=== PATIENT | female | born 1990 | race African-American/Black ===

== ENCOUNTER 2018-07-17 09:34 | Emergency (ER) | payer MEDICAID, OTHER ==
[~2018-07-17] VITALS: Ht 167.6 cm; Wt 90.7 kg
[2018-07-17 11:25] VITALS: BP 114/75
== END 2018-07-17 12:13 | disposition home or self-care (01) ==
LOC: ER 09:40
DX: J02.9 Acute pharyngitis, unspecified (principal); R05 Cough; R50.9 Fever, unspecified

== ENCOUNTER 2018-09-06 09:14 | Emergency (ER) | payer MEDICAID ==
[~2018-09-06] VITALS: Ht 167.6 cm; Wt 92.5 kg
[2018-09-06 10:22] LABS: Urine Pregnacy Test Negative (Negative)
[2018-09-06 10:29] LABS: Urine Bacteria FEW /hpf (None Seen); Urine Blood Negative /uL (Negative); Urine Mucus FEW (None Seen); Urine Specific Gravity 1.027 (1.001-1.035); Urine WBC 3 /hpf (0 - 5)
[2018-09-06 10:40] LABS: Basophils # (auto) 0.1 uL; Eosinophils # (auto) 0.1 uL; Eosinophils % (auto) 1.1 % (0.0-7.0); Hematocrit 40.6 % (36.0-46.0); Hemoglobin 13.7 g/dL (12.2-16.2); Lymphocytes # (auto) 1.7 uL; Mean Corpuscular Hemoglobin 28.8 pg (28.0-32.0); Mean Corpuscular Hgb Conc. 33.8 g/dL (32.0-36.0); Mean Corpuscular Volume 85.1 fL (80.0-100.0); Monocytes # (auto) 0.7 uL; Neutrophils # (auto) 6.5 uL; Neutrophils % (auto) 70.9 % (37.0-80.0); Platelet Count (auto) 278 10^3/uL (140-450); Red Blood Cells 4.78 10^6/uL (4.0-5.20); Red Cell Distribution Width 14.2 % (11.8-14.3); White Blood Cell 9.2 10^3/uL (4.4-10.8)
[2018-09-06 11:00] LABS: Albumin 3.7 g/dL (3.4-5.0); Calcium 8.7 mg/dL (8.5-10.1); Potassium 3.8 mmol/L (3.5-5.1)
[2018-09-06 11:03] LABS: BUN/Creatinine Ratio 19.6; Bilirubin, Total 0.4 mg/dL (0.2-1.0); Total Protein 8.3 g/dL (6.4-8.2)
[2018-09-06 12:45] VITALS: BP 129/86
[2018-09-06 14:59] LABS: Alcohol, Urine < 3.0 mg/dL (0-5); Amphetamine Screen, Urine NEGATIVE (NEGATIVE); Barbiturate Scree,Urine NEGATIVE (NEGATIVE); Benzodiazephine Screen, Urine NEGATIVE (NEGATIVE); Cannabinoid Screen, Urine POSITIVE (NEGATIVE); Cocaine Screen, Urine NEGATIVE (NEGATIVE); Opiate Scree,Urine NEGATIVE (NEGATIVE); Phencyclidine Screen, Urine NEGATIVE (NEGATIVE)
== END 2018-09-06 12:46 | disposition home or self-care (01) ==
LOC: ER 09:14
DX: M25.741 Osteophyte, right hand (principal); N39.0 Urinary tract infection, site not specified; Z88.6 Allergy status to analgesic agent
CPT/HCPCS: 36415; 73130; 80053; 80307; 81001; 81025; 85025